=== PATIENT | female | born 1990 | race Caucasian/White ===

== ENCOUNTER 2022-08-04 09:09 | Inpatient (IN) | payer OTHER ==
[~2022-08-04] VITALS: Ht 162.6 cm; Wt 73.9 kg
[2022-08-04] MEDS ORDERED: NS 1,000 ML IV ONE ×2 (09:25→13:25)
[2022-08-04] MEDS ORDERED: KETOROLAC 30 MG/ML 1ML VIAL IV ONE (09:25)
[2022-08-04] MEDS ORDERED: IBUP200C33 PO (09:35)
[2022-08-04] MEDS ORDERED: ACET325C5 PO (09:35)
[2022-08-04] MEDS ORDERED: ONDANSETRON 4MG 2ML VIAL IV ONE (09:50)
[2022-08-04 10:13] LABS: BASO % 0.2 % (0.0-1.0); HEMATOCRIT 44.9 % (36.0-47.0); HEMOGLOBIN 14.1 g/dl (12.0-15.5); LYMPH # 0.4 10^3/uL (1.5-5.0); LYMPH % 3.4 % (24.0-44.0); MEAN CORPUSCULAR HGB CONC 31.4 g/dl (32.0-36.5); MEAN CORPUSCULAR VOLUME 85.9 fl (80.0-96.0); MONO # 0.3 10^3/uL (0.0-0.8); MONO % 2.4 % (2.0-8.0); NEUTROPHILS # 11.7 10^3/uL (1.5-8.5); NEUTROPHILS % 93.7 % (36.0-66.0); PLATELET COUNT, AUTOMATED 116 10^3/uL (150-450); RED BLOOD COUNT 5.23 10^6/uL (4.00-5.40); WHITE BLOOD COUNT 12.5 10^3/uL (4.0-10.0)
[2022-08-04] MEDS ORDERED: ISOVUE-370 76% 100ML VIAL As Ordered ONE (10:38)
[2022-08-04 10:42] LABS: ALBUMIN 3.4 G/DL (3.2-5.2); BILIRUBIN,DIRECT 0.5 MG/DL (<0.4); BILIRUBIN,TOTAL 1.3 MG/DL (0.3-1.2); TOTAL PROTEIN 6.4 G/DL (5.7-8.2)
[2022-08-04] MEDS ORDERED: cefTRIAXone SOD 1 GM in D5W MINI-BAG PLUS 50 ML IV ONE (11:40)
[2022-08-04 11:53] LABS: HEMOGLOBIN A1c 4.8 % (4.0-6.0)
[2022-08-04] MEDS ORDERED: ACETAMINOPHEN 325 MG TAB PO ONE (13:05)
[2022-08-04] MEDS ORDERED: MORPHINE 4 MG/ML 1ML VIAL IV ONE (13:25)
[2022-08-04 13:27] LABS: GC DNA AMPLIFICATION NEGATIVE (NEGATIVE)
[2022-08-04] MEDS ORDERED: D5W/LR 1,000 ML IV SCH (14:10)
[2022-08-04] MEDS ORDERED: KETOROLAC 30 MG/ML 1ML VIAL IV PRN (14:10)
[2022-08-04] MEDS ORDERED: MORPHINE 4 MG/ML 1ML VIAL IV PRN (14:10)
[2022-08-04] MEDS ORDERED: LATA0.0015 OU (14:31)
[2022-08-04] MEDS ORDERED: CETI-24 PO (14:31)
[2022-08-04] MEDS ORDERED: PREN200C PO (14:31)
[2022-08-04] MEDS ORDERED: HOME MED LIST COMPLETE! XX SCH (14:35)
[2022-08-04 15:35] VITALS: BP 103/60
[2022-08-04 15:41] LABS: INR 1.14; PROTHROMBIN TIME 14.8 SECONDS (12.5-14.5)
[2022-08-04] MEDS ORDERED: LevoFLOXacin IV 750 MG in IV 1 EA IV SCH (16:00)
[2022-08-04] MEDS: DICLOFENAC EPOLAMINE 1.3% PATCH TOP SCH ×2 (16:04→21:00)
[2022-08-04] MEDS: LIDOCAINE 5% (LIDODERM) PATCH TD SCH (16:04)
[2022-08-04 16:15] VITALS: BP_SYST 104; BP_SYST 113; BP_DIAS 61; BP_DIAS 72; BP_DIAS 73
[2022-08-04] MEDS: ACETAMINOPHEN 500 MG TAB PO SCH ×2 (16:37→23:17)
[2022-08-04] MEDS ORDERED: LR 1,000 ML IV ONE ×2 (17:10)
[2022-08-04 18:00] VITALS: BP 95/63
[2022-08-04] MEDS ORDERED: RIVAROXABAN 10MG TAB (XARELTO) PO SCH (18:00)
[2022-08-04 18:46] VITALS: BP 96/62
[2022-08-04] MEDS: LATANOPROST 0.005% OPHTH SOLN 2.5 ML OU SCH (20:30)
[2022-08-04 20:48] VITALS: BP 116/75
[2022-08-04] MEDS ORDERED: ENOXAPARIN 40MG/0.4ML SYRINGE (J1650 PER 10MG) SC SCH (21:00)
[2022-08-04] MEDS: KETOROLAC 30 MG/ML 1ML VIAL IV PRN (22:08)
[2022-08-04 23:19] VITALS: BP 116/74
[2022-08-05 04:00] VITALS: BP 113/74
[2022-08-05] MEDS: ACETAMINOPHEN 500 MG TAB PO SCH ×4 (05:39→23:26)
[2022-08-05 06:10] LABS: BASO % 0.3 % (0.0-1.0); EOS % 0.5 % (0.0-3.0); HEMATOCRIT 36.7 % (36.0-47.0); LYMPH # 0.7 10^3/uL (1.5-5.0); LYMPH % 7.8 % (24.0-44.0); MEAN CORPUSCULAR HEMOGLOBIN 26.6 pg (27.0-33.0); MEAN CORPUSCULAR HGB CONC 31.1 g/dl (32.0-36.5); MEAN CORPUSCULAR VOLUME 85.7 fl (80.0-96.0); MONO # 0.7 10^3/uL (0.0-0.8); MONO % 7.4 % (2.0-8.0); NEUTROPHILS # 7.4 10^3/uL (1.5-8.5); NEUTROPHILS % 83.7 % (36.0-66.0); PLATELET COUNT, AUTOMATED 109 10^3/uL (150-450); RED BLOOD COUNT 4.28 10^6/uL (4.00-5.40); WHITE BLOOD COUNT 8.9 10^3/uL (4.0-10.0)
[2022-08-05 06:11] LABS: HEMOGLOBIN 11.4 g/dl (12.0-15.5)
[2022-08-05 06:31] LABS: BLOOD UREA NITROGEN 12 MG/DL (9-23); CALCIUM LEVEL 7.5 MG/DL (8.5-10.1); CARBON DIOXIDE LEVEL 26 MMOL/L (20-31); CHLORIDE LEVEL 111 MMOL/L (98-107); GLOMERULAR FILTRATION RATE > 60.0 (>60); GLUCOSE, FASTING 83 MG/DL (60-100); POTASSIUM SERUM 4.1 MMOL/L (3.5-5.1); SODIUM LEVEL 140 MMOL/L (136-145)
[2022-08-05] MEDS: ENOXAPARIN 40MG/0.4ML SYRINGE (J1650 PER 10MG) SC SCH (09:00)
[2022-08-05] MEDS: LIDOCAINE 5% (LIDODERM) PATCH TD SCH (09:03)
[2022-08-05] MEDS: DICLOFENAC EPOLAMINE 1.3% PATCH TOP SCH ×2 (09:04→20:14)
[2022-08-05] MEDS ORDERED: DIFL150T PO (09:55)
[2022-08-05] MEDS ORDERED: LEVO1TAB40 PO (09:55)
[2022-08-05] MEDS ORDERED: LIDO5TD TD (09:55)
[2022-08-05 10:00] VITALS: BP 116/79
[2022-08-05] MEDS ORDERED: LevoFLOXacin 750 MG TABLET PO ONE (12:00)
[2022-08-05] MEDS ORDERED: FLUCONAZOLE 50MG TABLET PO ONE (13:00)
[2022-08-05 14:00] VITALS: BP 140/92
[2022-08-05 14:33] LABS: BASO % 0.1 % (0.0-1.0); EOS % 0.1 % (0.0-3.0); HEMATOCRIT 36.6 % (36.0-47.0); HEMOGLOBIN 11.8 g/dl (12.0-15.5); LYMPH # 0.5 10^3/uL (1.5-5.0); LYMPH % 5.8 % (24.0-44.0); MEAN CORPUSCULAR HEMOGLOBIN 27.1 pg (27.0-33.0); MEAN CORPUSCULAR HGB CONC 32.2 g/dl (32.0-36.5); MEAN CORPUSCULAR VOLUME 84.1 fl (80.0-96.0); MONO # 0.5 10^3/uL (0.0-0.8); MONO % 6.1 % (2.0-8.0); NEUTROPHILS % 87.6 % (36.0-66.0); PLATELET COUNT, AUTOMATED 108 10^3/uL (150-450); RED BLOOD COUNT 4.35 10^6/uL (4.00-5.40)
[2022-08-05 14:49] VITALS: BP 116/66
[2022-08-05] MEDS: KETOROLAC 30 MG/ML 1ML VIAL IV PRN (14:49)
[2022-08-05 15:06] LABS: ALBUMIN 2.6 G/DL (3.2-5.2); ALKALINE PHOSPHATASE 74 U/L (46-116); ALT/SGPT 12 U/L (7.0-40); AST/SGOT 15 U/L (<34); BILIRUBIN,TOTAL 0.4 MG/DL (0.3-1.2); BLOOD UREA NITROGEN 9 MG/DL (9-23); CALCIUM LEVEL 7.7 MG/DL (8.5-10.1); CARBON DIOXIDE LEVEL 25 MMOL/L (20-31); CHLORIDE LEVEL 107 MMOL/L (98-107); CREATININE FOR GFR 0.65 MG/DL (0.55-1.30); GLOMERULAR FILTRATION RATE > 60.0 (>60); GLUCOSE, FASTING 102 MG/DL (60-100); POTASSIUM SERUM 3.9 MMOL/L (3.5-5.1); SODIUM LEVEL 139 MMOL/L (136-145); TOTAL PROTEIN 5.2 G/DL (5.7-8.2)
[2022-08-05] MEDS ORDERED: LORazepam 0.5 MG TAB PO ONE (15:50)
[2022-08-05] MEDS: D5W/LR 1,000 ML IV SCH (16:02)
[2022-08-05 18:00] VITALS: BP 132/89
[2022-08-05 20:12] VITALS: BP 130/88
[2022-08-05] MEDS: LATANOPROST 0.005% OPHTH SOLN 2.5 ML OU SCH (20:15)
[2022-08-05] MEDS: ONDANSETRON 4MG 2ML VIAL IV PRN (21:12)
[2022-08-06] VITALS: BP 131/87
[2022-08-06] MEDS: D5W/LR 1,000 ML IV SCH ×2 (00:41→09:34)
[2022-08-06 04:47] VITALS: BP 135/92
[2022-08-06] MEDS: ONDANSETRON 4MG 2ML VIAL IV PRN (06:18)
[2022-08-06] MEDS: ACETAMINOPHEN 500 MG TAB PO SCH ×2 (06:19→12:49)
[2022-08-06 06:30] LABS: BASO % 0.4 % (0.0-1.0); EOS % 0.7 % (0.0-3.0); HEMATOCRIT 35.4 % (36.0-47.0); HEMOGLOBIN 10.9 g/dl (12.0-15.5); LYMPH # 0.7 10^3/uL (1.5-5.0); LYMPH % 12.3 % (24.0-44.0); MEAN CORPUSCULAR HEMOGLOBIN 26.3 pg (27.0-33.0); MEAN CORPUSCULAR HGB CONC 30.8 g/dl (32.0-36.5); MEAN CORPUSCULAR VOLUME 85.3 fl (80.0-96.0); MONO # 0.5 10^3/uL (0.0-0.8); MONO % 8.7 % (2.0-8.0); NEUTROPHILS # 4.4 10^3/uL (1.5-8.5); NEUTROPHILS % 77.5 % (36.0-66.0); PLATELET COUNT, AUTOMATED 106 10^3/uL (150-450); RED BLOOD COUNT 4.15 10^6/uL (4.00-5.40); WHITE BLOOD COUNT 5.6 10^3/uL (4.0-10.0)
[2022-08-06 07:00] LABS: BLOOD UREA NITROGEN 5 MG/DL (9-23); CARBON DIOXIDE LEVEL 27 MMOL/L (20-31); CHLORIDE LEVEL 110 MMOL/L (98-107); CREATININE FOR GFR 0.65 MG/DL (0.55-1.30); GLOMERULAR FILTRATION RATE > 60.0 (>60); GLUCOSE, FASTING 95 MG/DL (60-100); POTASSIUM SERUM 3.9 MMOL/L (3.5-5.1); SODIUM LEVEL 142 MMOL/L (136-145)
[2022-08-06] MEDS: ENOXAPARIN 40MG/0.4ML SYRINGE (J1650 PER 10MG) SC SCH (09:00)
[2022-08-06] MEDS: LIDOCAINE 5% (LIDODERM) PATCH TD SCH (09:34)
[2022-08-06] MEDS: DICLOFENAC EPOLAMINE 1.3% PATCH TOP SCH (09:34)
[2022-08-06 10:00] VITALS: BP 137/92
[2022-08-06] MEDS ORDERED: LevoFLOXacin IV 750 MG in IV 1 EA IV SCH (12:00)
[2022-08-06] MEDS ORDERED: ONDA4TAB6 PO (13:12)
== END 2022-08-06 13:47 | disposition home or self-care (01) | DRG 690 ==
LOC: M ED 09:09 → M ED INP 14:06 → ENRESERV 15:08 → M MSPAV 15:37
PROVIDERS: ADMIT Student in an Organized Health Care Education/Training Program; ATTEND Student in an Organized Health Care Education/Training Program
DX: N11.0 Nonobstructive reflux-associated chronic pyelonephritis (principal); E87.20 Acidosis, unspecified; H40.9 Unspecified glaucoma; J30.9 Allergic rhinitis, unspecified; N20.0 Calculus of kidney; K80.20 Calculus of gallbladder without cholecystitis without obstruction; B96.20 Unspecified Escherichia coli [E. coli] as the cause of diseases classified elsewhere; N80.9 Endometriosis, unspecified; N73.9 Female pelvic inflammatory disease, unspecified; Z79.899 Other long term (current) drug therapy

== ENCOUNTER 2022-11-23 17:51 | Emergency (ER) | payer OTHER ==
[~2022-11-23] VITALS: Ht 162.6 cm; Wt 70.2 kg
[~2022-11-23 17:51] MED LIST: ACET325C5 PO; CETI-24 PO; DIFL150T PO; IBUP200C33 PO; LATA0.0015 OU; LEVO1TAB40 PO; LIDO5TD TD; ONDA4TAB6 PO; PREN200C PO
[2022-11-23 18:34] LABS: BASO % 0.3 % (0.0-1.0); HEMATOCRIT 46.4 % (36.0-47.0); HEMOGLOBIN 14.7 g/dl (12.0-15.5); LYMPH # 0.7 10^3/uL (1.5-5.0); LYMPH % 9.1 % (24.0-44.0); MEAN CORPUSCULAR HEMOGLOBIN 27.7 pg (27.0-33.0); MEAN CORPUSCULAR HGB CONC 31.7 g/dl (32.0-36.5); MEAN CORPUSCULAR VOLUME 87.4 fl (80.0-96.0); MONO # 0.5 10^3/uL (0.0-0.8); MONO % 5.6 % (2.0-8.0); NEUTROPHILS # 6.7 10^3/uL (1.5-8.5); NEUTROPHILS % 84.4 % (36.0-66.0); PLATELET COUNT, AUTOMATED 128 10^3/uL (150-450); RED BLOOD COUNT 5.31 10^6/uL (4.00-5.40)
[2022-11-23 18:55] LABS: HCG, SERUM QUALITATIVE NEGATIVE (NEGATIVE); LIPASE 29 U/L (12-53)
[2022-11-23 18:58] LABS: ALBUMIN 4.1 G/DL (3.2-5.2); ALKALINE PHOSPHATASE 59 U/L (46-116); ALT/SGPT 12 U/L (7.0-40); AST/SGOT < 8 U/L (<34); BILIRUBIN,DIRECT 0.4 MG/DL (<0.4); BILIRUBIN,TOTAL 1.2 MG/DL (0.3-1.2); BLOOD UREA NITROGEN 13 MG/DL (9-23); CALCIUM LEVEL 8.7 MG/DL (8.5-10.1); CARBON DIOXIDE LEVEL 29 MMOL/L (20-31); CHLORIDE LEVEL 101 MMOL/L (98-107); CREATININE FOR GFR 0.65 MG/DL (0.55-1.30); GLOMERULAR FILTRATION RATE > 60.0 (>60); GLUCOSE, FASTING 105 MG/DL (60-100); POTASSIUM SERUM 3.9 MMOL/L (3.5-5.1); SODIUM LEVEL 138 MMOL/L (136-145); TOTAL PROTEIN 6.9 G/DL (5.7-8.2)
[2022-11-23] MEDS ORDERED: IBUPROFEN 600MG TAB PO ONE (21:05)
[2022-11-23] MEDS ORDERED: CIPROFLOXACIN 500MG TABLET PO ONE (22:30)
[2022-11-23] MEDS ORDERED: PHENAZOPYRIDINE 100 MG TAB PO ONE (22:30)
[2022-11-23 22:34] VITALS: BP 132/77; TEMP 99.9; O2SAT 98
[2022-11-23] MEDS ORDERED: CIPR-249 PO (22:37)
[2022-11-23] MEDS ORDERED: ONDA-83 PO (22:37)
[2022-11-23] MEDS ORDERED: PYRI1TAB5 PO (22:37)
== END 2022-11-23 22:46 | disposition home or self-care (01) ==
LOC: M ED 17:51
DX: N10 Acute pyelonephritis (principal); Z87.440 Personal history of urinary (tract) infections; Z79.899 Other long term (current) drug therapy

== ENCOUNTER → 2023-07-19 | Outpatient (CLI) | payer OTHER ==
[~2023-07-19] MED LIST changes: +CIPR-249 PO; +DIATRIZOATE MEGLUMINE 30% 300ML (300MG/ML) CYSTOGRAFIN As Ordered ONE; +ONDA-83 PO; +PYRI1TAB5 PO
== END ==
LOC: M RADPRO 09:58
PROVIDERS: ATTEND Specialist
DX: N13.70 Vesicoureteral-reflux, unspecified (principal)
CPT/HCPCS: 51610; 74455; Q9958

== ENCOUNTER → 2023-09-12 | Outpatient (CLI) | payer OTHER ==
[~2023-09-12] MED LIST changes: -DIATRIZOATE MEGLUMINE 30% 300ML (300MG/ML) CYSTOGRAFIN As Ordered ONE
== END ==
LOC: M RAD 14:10
PROVIDERS: ATTEND Specialist
DX: N20.0 Calculus of kidney (principal)